=== PATIENT | male | born 1970 | race Hispanic/Latino ===

== ENCOUNTER 2020-03-25 10:08 | Emergency (ER) | payer OTHER ==
[2020-03-25] MEDS ORDERED: LACTATED RINGERS 1,000 ML IV ONE (10:44)
--- NOTE | 2020-03-25 10:47 | Emergency Department Report ---
ED Lower Extremity HPI - General Chief Complaint: Extremity Injury, Lower Stated Complaint: LEG INJURY Time Seen by Provider: 03/25/20 10:31 Source: patient, EMS ( EMS documentation not available at time of chart dictation ), RN notes reviewed Mode of arrival: Stretcher Limitations: Physical Limitation - History of Present Illness Initial Comments: The patient is a 50-year-old gentleman who is not known to myself previously, who denies significant chronic medical issues, presenting to the ER with traumatic right lower extremity injury. Patient states that he was bending down on his left knee, out on the street, and a truck which was supported lost its support, and landed on his knee, directing it inferiorly and possibly posteriorly (right knee.) Prior to this event, he was not having any pain or injury. After this, he states that he felt something "snap" in his right ankle/distal lower extremity, and has intense sharp throbbing pain, which increases with palpation, range of motion, and decreases with rest. He denies headache, neck pain, chest pain, abdominal pain, shortness of breath, weakness/numbness. He states that the truck landed on his knee, and directed the force distally through his foot/ankle. He was splinted by EMS prior to arrival. MD Complaint: knee injury, ankle injury, foot injury, other -: Sudden Injury: Ankle: Right Type of Injury: blunt Place: school, street/outdoors Severity: severe Improves With: rest Worsens With: movement, palpation Context: other Associated Symptoms: snap/pop sensation, swelling, unable to bear weight Treatments Prior to Arrival: bandage, splint - Related Data Previous Rx's Medication Instructions Recorded Last Taken Type Acetaminophen [Non-Aspirin Extra 500 mg PO Q6HR PRN #30 tablet 03/25/20 Unknown Rx Strength] Ibuprofen [Motrin] 600 mg PO Q8H PRN #30 tablet 03/25/20 Unknown Rx Morphine Sulfate [Morphine Sulfate 7.5 mg PO Q6HR PRN #10 tablet 03/25/20 Unknown Rx IR] Allergies Allergy/AdvReac Type Severity Reaction Status Date / Time No Known Allergies Allergy Unverified 03/25/20 10:24 ED Review of Systems ROS: Stated complaint: LEG INJURY Other details as noted in HPI Constitutional: denies: fever Eyes: denies: eye discharge ENT: denies: epistaxis Respiratory: denies: cough Cardiovascular: denies: chest pain Gastrointestinal: denies: abdominal pain Musculoskeletal: joint swelling, arthralgia, myalgia Skin: denies: lesions Neurological: denies: numbness, paresthesias ED Past Medical Hx - Past Medical History Previous Medical History?: No - Surgical History Past Surgical History?: No - Social History Smoking Status: Current Every Day Smoker Substance Use Type: Alcohol - Medications Home Medications: Home Medications Medication Instructions Recorded Confirmed Last Taken Type Acetaminophen [Non-Aspirin Extra 500 mg PO Q6HR PRN #30 tablet 03/25/20 Unknown Rx Strength] Ibuprofen [Motrin] 600 mg PO Q8H PRN #30 tablet 03/25/20 Unknown Rx Morphine Sulfate [Morphine Sulfate 7.5 mg PO Q6HR PRN #10 tablet 03/25/20 Unknown Rx IR] ED Physical Exam - General Limitations: Physical Limitation General appearance: alert, in no apparent distress - Head Head exam: Present: atraumatic, normocephalic - Eye Eye exam: Present: normal appearance, EOMI. Absent: nystagmus - ENT ENT exam: Present: normal exam, normal orophraynx, mucous membranes moist, normal external ear exam - Neck Neck exam: Present: normal inspection, full ROM. Absent: tenderness, meningismus - Respiratory Respiratory exam: Present: normal lung sounds bilaterally. Absent: respiratory distress - Cardiovascular Cardiovascular Exam: Present: regular rate, normal rhythm, normal heart sounds. Absent: bradycardia, tachycardia, irregular rhythm, systolic murmur, diastolic murmur, rubs, gallop - GI/Abdominal GI/Abdominal exam: Present: soft, normal bowel sounds. Absent: distended, tenderness, guarding, rebound, rigid, pulsatile mass - Rectal Rectal exam: Present: deferred - Extremities Exam Extremities exam: Present: tenderness (There is diffuse right ankle tenderness. There is no significant laxity in the joint. 2+ pulses noted in the bilateral upper/lower extremities in the bilateral femoral and dorsalis pedis distribution. The thighs are nontender, the knees are nontender, the proximal fibula/tibia are nontender.). Absent: normal inspection (There is a small right-sided ankle effusion) - Back Exam Back exam: Present: normal inspection, full ROM. Absent: tenderness, CVA tenderness (R), CVA tenderness (L), paraspinal tenderness, vertebral tenderness - Neurological Exam Neurological exam: Present: alert, other (No facial droop. Tongue midline. Extraocular movements intact bilaterally. Facial sensation intact to light touch in V1, V2, V3 distribution bilaterally. 5 and a 5 strength in 4 extremities. Sensation intact to light touch in 4 extremities.). Absent: motor sensory deficit - Psychiatric Psychiatric exam: Present: normal affect, normal mood - Skin Skin exam: Present: warm, dry, intact, normal color. Absent: rash ED Course Vital Signs 03/25/20 10:28 Temperature 98.1 F Pulse Rate 60 Respiratory 16 Rate Blood Pressure 135/75 [Right] O2 Sat by Pulse 98 Oximetry - Reevaluation(s) Reevaluation #1: 03/25/20 12:10 Differential diagnosis, including but not limited to: Fracture, dislocation, arterial injury, crush injury Assessment and plan: 50-year-old gentleman presenting with crush injury to right knee, where he was kneeling on his left knee, and a truck which was supported fell down on his knee, directing force inferiorly, and possibly posteriorly. Given mechanism of injury, we will obtain CT angiogram right lower extremity to exclude occult arterial injury, given mechanism, ankle-brachial index may not be sufficient to exclude occult arterial injury. We will treat his pain aggressively, he is given hydromorphone for pain, which improved his pain. X-rays/plain films of his right lower extremity are reviewed and appreciated. An Aircast will be ordered. If no arterial injury noted, he will need to remain nonweightbearing on the right lower extremity, maintain Aircast/splint, and follow-up with Worker's Compensation orthopedic/sports/physician. Discussed this plan of care with the patient, who verbalized understanding, and who is amenable to this plan of care. Reevaluation #2: 03/25/20 13:59 Reassessed multiple times. Patient feels improved. Pulses remain intact. Angiogram shows no arterial injury. Nonweightbearing, crutches, splint applied. Reiterated discharge instructions to patient who verbalized understanding ED Lower Extremity MDM - Lab Data Result diagrams: 03/25/20 10:57 03/25/20 10:57 Vital Signs 03/25/20 10:28 Temperature 98.1 F Pulse Rate 60 Respiratory 16 Rate Blood Pressure 135/75 [Right] O2 Sat by Pulse 98 Oximetry Labs 08/03/25/20 03/25/20 10:51 10:57 10:57 Hgb 16.6 H Hct 49.6 H Plt Count 319 PT 12.4 INR 0.91 Sodium 142 Potassium 4.0 Chloride 104.2 Carbon Dioxide 26 Anion Gap 16 BUN 14 Creatinine 0.9 Estimated GFR > 60 BUN/Creatinine Ratio 16 Glucose 85 Calcium 9.6 Total Creatine Kinase 93 - Radiology Data Radiology results: report reviewed, image reviewed Print Report Referring Physician: ARMANDO VIVAS Patient Name: LORENZO SPENCER Date of : 1970 Sex: Male Report Date: 2020-03-25 Report Status: Finalized Findings [address] [address] XRay Report Signed Patient: LORENZO SPENCER MR#: [id number] 450 : 1970 Acct:[id number] Age/Sex: 50 / M ADM Date: 03/25/20 Loc: ED Attending Dr: Ordering Physician: ARMANDO VIVAS MD Date of Service: 03/25/20 Procedure(s): XR tibia fibula 2V RT Accession Number(s): [id number] cc: ARMANDO VIVAS MD Fluoro Time In Minutes: RIGHT TIBIA-FIBULA 4 VIEW(S) INDICATION / CLINICAL INFORMATION: right leg pain crush injury COMPARISON: None available. FINDINGS: BONES / JOINT(S): There is a comminuted, minimally displaced fracture of the lateral talar process. No additional fractures are seen. There is no dislocation. Overall knee and ankle alignment is normal. No significant arthritis. SOFT TISSUES: No significant abnormality. ADDITIONAL FINDINGS: None. Signer Name: Krishna Abreu MD Signed: 03/25/2020 11:51 AM Workstation Name: [id number] Transcribed By: SS Dictated By: KRISHNA ABREU Electronically Authenticated By: KRISHNA ABREU Signed Date/Time: 03/25/20 1151 DD/ 1150 TD/TT: Print Report Referring Physician: ARMANDO VIVAS Patient Name: LORENZO SPENCER Date of : 1970 Sex: Male Report Date: 2020-03-25 Report Status: Finalized Findings [facility] [address] [address] XRay Report Signed Patient: LORENZO SPENCER MR#: [id number] 450 : 1970 Acct:[id number] Age/Sex: 50 / M ADM Date: 03/25/20 Loc: ED Attending Dr: Ordering Physician: ARMANDO VIVAS MD Date of Service: 03/25/20 Procedure(s): XR femur 2+V RT Accession Number(s): [id number] cc: ARMANDO VIVAS MD Fluoro Time In Minutes: RIGHT FEMUR 4 VIEW(S) INDICATION / CLINICAL INFORMATION: right leg pain crush injury COMPARISON: None available. FINDINGS: BONES / JOINT(S): No acute fracture or subluxation. No significant arthritis. SOFT TISSUES: No significant abnormality. ADDITIONAL FINDINGS: None. Signer Name: Krishna Abreu MD Signed: 03/25/2020 11:52 AM Workstation Name: [id number] Transcribed By: SS Dictated By: KRISHNA ABREU Electronically Authenticated By: KRISHNA ABREU Signed Date/Time: 03/25/20 1152 DD/ 1151 Print Report Referring Physician: ARMANDO VIVAS Patient Name: LORENZO SPENCER Date of : 1970 Sex: Male Report Date: 2020-03-25 Report Status: Finalized Findings [address] [address] XRay Report Signed Patient: LORENZO SPENCER MR#: [id number] 450 : 1970 Acct:[id number] Age/Sex: 50 / M ADM Date: 03/25/20 Loc: ED Attending Dr: Ordering Physician: ARMANDO VIVAS MD Date of Service: 03/25/20 Procedure(s): XR knee 1-2V RT Accession Number(s): [id number] cc: ARMANDO VIVAS MD Fluoro Time In Minutes: RIGHT KNEE 2 VIEWS INDICATION: rigth leg pain crush injury. COMPARISON: None. IMPRESSION: No acute osseous or soft tissue abnormality. No significant DJD. Signer Name: Christopher Steele Jr, MD Signed: 03/25/2020 11:48 AM Workstation Name: [id number] Transcribed By: TTR Dictated By: CHRISTOPHER STEELE JR, MD Electronically Authenticated By: CHRISTOPHER STEELE JR, MD Signed Date/Time: 03/25/20 1148 DD/ 1147 TD/TT: Print Report Referring Physician: ARMANDO VIVAS Patient Name: LORENZO SPENCER Date of : 1970 Sex: Male Report Date: 2020-03-25 Report Status: Finalized Findings [address] [address] XRay Report Signed Patient: LORENZO SPENCER MR#: [id number] 450 : 1970 Acct:[id number] Age/Sex: 50 / M ADM Date: 03/25/20 Loc: ED Attending Dr: Ordering Physician: ARMANDO VIVAS MD Date of Service: 03/25/20 Procedure(s): XR foot 2V RT Accession Number(s): [id number] cc: ARMANDO VIVAS MD Fluoro Time In Minutes: RIGHT FOOT 2 VIEW(S) INDICATION / CLINICAL INFORMATION: right leg pain crush injury COMPARISON: None available. FINDINGS: BONES / JOINT(S): There is a comminuted, minimally displaced fracture of the lateral talar process. No additional fractures are seen. There is no dislocation. Inferior calcaneal enthesopathy is noted. SOFT TISSUES: No significant abnormality. ADDITIONAL FINDINGS: None. IMPRESSION: Comminuted, minimally displaced fracture of the lateral talar process. Signer Name: Krishna Abreu MD Signed: 03/25/2020 11:50 AM Workstation Name: [id number] Transcribed By: SS Dictated By: KRISHNA ABREU Electronically Authenticated By: KRISHNA ABREU Signed Date/Time: 03/25/20 1150 DD/ 1149 TD/TT: Print Report Referring Physician: ARMANDO VIVAS Patient Name: LORENZO SPENCER Date of : 1970 Sex: Male Report Date: 2020-03-25 Report Status: Finalized Findings [address] [address] XRay Report Signed Patient: LORENZO SPENCER MR#: [id number] 450 : 1970 Acct:[id number] Age/Sex: 50 / M ADM Date: 03/25/20 Loc: ED Attending Dr: Ordering Physician: ARMANDO VIVAS MD Date of Service: 03/25/20 Procedure(s): XR ankle 3+V RT Accession Number(s): [id number] cc: ARMANDO VIVAS MD Fluoro Time In Minutes: RIGHT ANKLE 3 VIEW(S) INDICATION / CLINICAL INFORMATION: right leg pain crush injury COMPARISON: None available. FINDINGS: BONES / JOINT(S): There is a comminuted, minimally displaced fracture of the lateral talar process. No additional fractures are seen. There is no dislocation. 6 inferior calcaneal enthesopathy is seen at the plantar fascial attachment. SOFT TISSUES: No significant abnormality. ADDITIONAL FINDINGS: None. IMPRESSION: Comminuted, minimally displaced fracture of the lateral talar process. Signer Name: Krishna Abreu MD Signed: 03/25/2020 11:49 AM Workstation Name: [id number] Transcribed By: SS Dictated By: KRISHNA ABREU Electronically Authenticated By: KRISHNA ABREU Signed Date/Time: 03/25/20 1149 DD/ 1147 TD/TT: Print Report Referring Physician: ARMANDO VIVAS Patient Name: LORENZO SPENCER Date of : 1970 Sex: Male Report Date: 2020-03-25 Report Status: Finalized Findings [facility] [address] [place] [address] Cat Scan Report Signed Patient: LORENZO SPENCER MR#: [id number] 450 : 1970 Acct:[id number] Age/Sex: 50 / M ADM Date: 03/25/20 Loc: ED Attending Dr: Ordering Physician: ARMANDO VIVAS MD Date of Service: 03/25/20 Procedure(s): CT angio lower extremity RT Accession Number(s): [id number] cc: ARMANDO VIVAS MD CTA RIGHT LOWER EXTREMITY INDICATION / CLINICAL INFORMATION: right leg pain crush injury. TECHNIQUE: Axial CT images were obtained through the right lower extremity after injection of 100 mL Omnipaque 350 IV contrast. 3 plane MIP / 3D reconstructions were produced. All CT scans at this location are performed using CT dose reduction for ALARA by means of automated exposure control. Any percent stenosis measurements are based on criteria similar to NASCET. COMPARISON: None available. FINDINGS: VASCULAR FINDINGS: - Common Femoral Artery: No significant abnormality. - Superficial Femoral Artery: No significant abnormality. - Profunda Femoral Artery: No significant abnormality. - Popliteal Artery: No significant abnormality. - Anterior Tibial Artery: No significant abnormality. - Tibioperoneal Trunk: No significant abnormality. - Posterior Tibial Artery: No significant abnormality. - Peroneal Artery: No significant abnormality. - Ankle runoff: Three vessel. NONTARGET STRUCTURES: PELVIS:No significant abnormality. LOWER EXTREMITIES:No significant abnormality. SKELETAL: Comminuted fractures of the lateral process of the talus in the right foot appears similar to recent x- rays. ADDITIONAL FINDINGS: None. IMPRESSION: 1. No acute arterial injury in the right lower extremity. Signer Name: Cale Guzman MD Signed: 03/25/2020 1:11 PM Workstation Name: [id number] Transcribed By: DANNY Dictated By: Cale Guzman MD Electronically Authenticated By: Cale Guzman MD Signed Date/Time: 03/25/20 1311 DD/ 1308 Critical care attestation.: If time is entered above; I have spent that time in minutes in the direct care of this critically ill patient, excluding procedure time. ED Disposition Clinical Impression: Crush injury knee/lower leg Qualifiers: Encounter type: initial encounter Laterality: right Qualified Code(s): S87.01XA - Crushing injury of right knee, initial encounter Fracture, talus closed Qualifiers: Encounter type: initial encounter Talus location: unspecified portion of talus Fracture alignment: displaced Laterality: right Qualified Code(s): S92.101A - Unspecified fracture of right talus, initial encounter for closed fracture Disposition: DC-01 TO HOME OR SELFCARE Is pt being admited?: No Does the pt Need Aspirin: No Condition: Stable Additional Instructions: Keep the right lower extremity splint in place. Remain nonweightbearing on the right lower extremities. Take the pain medications as needed and directed. Follow-up with a Worker's Compensation physician or orthopedic physician for right lower extremity injury within the next 3 to 5 days. Please return to the emergency room right away with new pain, worsening pain, migration of pain, extremity weakness, numbness, projectile vomiting, change in mental status, confusion, inability to tolerate liquid feeds, new, worsened or different symptoms not present on the initial emergency room evaluation. If taking the morphine sulfate for pain, do not drive, consume alcohol, or make important decisions. Please do not take metformin medication for the next 2 days, if patient takes this medication Prescriptions: Morphine Sulfate [Morphine Sulfate IR] 7.5 mg PO Q6HR PRN #10 tablet PRN Reason: Pain , Severe (7-10) Ibuprofen [Motrin] 600 mg PO Q8H PRN #30 tablet PRN Reason: Pain Acetaminophen [Non-Aspirin Extra Strength] 500 mg PO Q6HR PRN #30 tablet PRN Reason: Pain , Severe (7-10) Referrals: NINFA APONTE MD [Staff Physician] - 3-5 Days [facility] [Provider Group] - 3-5 Days Forms: Work/School Release Form
[2020-03-25 11:15] LABS: Hematocrit 49.6 % (35.5-45.6); Hemoglobin 16.6 gm/dl (11.8-15.2)
[2020-03-25 11:25] LABS: INR 0.91 (0.87-1.13)
[2020-03-25] MEDS ORDERED: HYDROmorphone 1 MG/1 ML INJ IV ONE ×3 (11:41)
[2020-03-25 11:43] LABS: BUN/Creatinine Ratio 16; Blood Urea Nitrogen 14 mg/dL (9-20); Calcium 9.6 mg/dL (8.4-10.2); Hemolysis Index 9
--- NOTE | 2020-03-25 11:52 | XRay Report ---
RIGHT KNEE 2 VIEWS INDICATION: rigth leg pain crush injury. COMPARISON: None. IMPRESSION: No acute osseous or soft tissue abnormality. No significant DJD. Signer Name: Christopher Steele Jr, MD Signed: 03/25/2020 11:48 AM Workstation Name: [id number]
--- NOTE | 2020-03-25 11:54 | XRay Report ---
RIGHT ANKLE 3 VIEW(S) INDICATION / CLINICAL INFORMATION: right leg pain crush injury COMPARISON: None available. FINDINGS: BONES / JOINT(S): There is a comminuted, minimally displaced fracture of the lateral talar process. N o additional fractures are seen. There is no dislocation. 6 inferior calcaneal enthesopathy is seen a t the plantar fascial attachment. SOFT TISSUES: No significant abnormality. ADDITIONAL FINDINGS: None. IMPRESSION: Comminuted, minimally displaced fracture of the lateral talar process. Signer Name: Saeid Abreu MD Signed: 03/25/2020 11:49 AM Workstation Name: [id number]
--- NOTE | 2020-03-25 11:55 | XRay Report ---
RIGHT FOOT 2 VIEW(S) INDICATION / CLINICAL INFORMATION: right leg pain crush injury COMPARISON: None available. FINDINGS: BONES / JOINT(S): There is a comminuted, minimally displaced fracture of the lateral talar process. N o additional fractures are seen. There is no dislocation. Inferior calcaneal enthesopathy is noted. SOFT TISSUES: No significant abnormality. ADDITIONAL FINDINGS: None. IMPRESSION: Comminuted, minimally displaced fracture of the lateral talar process. Signer Name: Saeid Abreu MD Signed: 03/25/2020 11:50 AM Workstation Name: [id number]
--- NOTE | 2020-03-25 11:56 | XRay Report ---
RIGHT TIBIA-FIBULA 4 VIEW(S) INDICATION / CLINICAL INFORMATION: right leg pain crush injury COMPARISON: None available. FINDINGS: BONES / JOINT(S): There is a comminuted, minimally displaced fracture of the lateral talar process. N o additional fractures are seen. There is no dislocation. Overall knee and ankle alignment is normal. No significant arthritis. SOFT TISSUES: No significant abnormality. ADDITIONAL FINDINGS: None. Signer Name: Saeid Abreu MD Signed: 03/25/2020 11:51 AM Workstation Name: [id number]
--- NOTE | 2020-03-25 11:56 | XRay Report ---
RIGHT FEMUR 4 VIEW(S) INDICATION / CLINICAL INFORMATION: right leg pain crush injury COMPARISON: None available. FINDINGS: BONES / JOINT(S): No acute fracture or subluxation. No significant arthritis. SOFT TISSUES: No significant abnormality. ADDITIONAL FINDINGS: None. Signer Name: Saeid Abreu MD Signed: 03/25/2020 11:52 AM Workstation Name: [id number]
--- NOTE | 2020-03-25 13:15 | Cat Scan Report ---
CTA RIGHT LOWER EXTREMITY INDICATION / CLINICAL INFORMATION: right leg pain crush injury. TECHNIQUE: Axial CT images were obtained through the right lower extremity after injection of 100 mL Omnipaque 3 50 IV contrast. 3 plane MIP / 3D reconstructions were produced. All CT scans at this location are per formed using CT dose reduction for ALARA by means of automated exposure control. Any percent stenosi s measurements are based on criteria similar to NASCET. COMPARISON: None available. FINDINGS: VASCULAR FINDINGS: - Common Femoral Artery: No significant abnormality. - Superficial Femoral Artery: No significant abnormality. - Profunda Femoral Artery: No significant abnormality. - Popliteal Artery: No significant abnormality. - Anterior Tibial Artery: No significant abnormality. - Tibioperoneal Trunk: No significant abnormality. - Posterior Tibial Artery: No significant abnormality. - Peroneal Artery: No significant abnormality. - Ankle runoff: Three vessel. NONTARGET STRUCTURES: PELVIS:No significant abnormality. LOWER EXTREMITIES:No significant abnormality. SKELETAL: Comminuted fractures of the lateral process of the talus in the right foot appears similar to recent x-rays. ADDITIONAL FINDINGS: None. IMPRESSION: 1. No acute arterial injury in the right lower extremity. Signer Name: Cale Guzman MD Signed: 03/25/2020 1:11 PM Workstation Name: [id number]
[2020-03-25 14:47] VITALS: BP 110/66
== END 2020-03-25 14:51 | disposition home or self-care (01) ==
LOC: ED 10:08
DX: S92.101A Unspecified fracture of right talus, initial encounter for closed fracture (principal); S87.01XA Crushing injury of right knee, initial encounter; F17.200 Nicotine dependence, unspecified, uncomplicated; Z79.899 Other long term (current) drug therapy; X58.XXXA Exposure to other specified factors, initial encounter; Y93.89 Activity, other specified; Y92.89 Other specified places as the place of occurrence of the external cause; Y99.8 Other external cause status
CPT/HCPCS: 29515; 36415; 73552; 73560; 73590; 73610; 73620; 73706; 80048; 82550; 85014; 85018; 85049; 85610; 96374; 99285; J1170; Q9967

== ENCOUNTER 2022-02-01 12:53 | Emergency (ER) | payer OTHER ==
[2022-02-01] MEDS ORDERED: KETOROLAC 30 MG/1 ML INJ IV ONE (13:32)
--- NOTE | 2022-02-01 14:26 | Cat Scan Report ---
CT HEAD WITHOUT CONTRAST INDICATION / CLINICAL INFORMATION: head injury, n/v, dizziness.. TECHNIQUE: All CT scans at this location are performed using CT dose reduction for ALARA by means of automated exposure control. COMPARISON: None available. FINDINGS: BRAIN PARENCHYMA: No acute intracranial hemorrhage. No evidence of recent infarct. No mass effect or midline shift. Small area of encephalomalacia in the right cerebellar hemisphere, may reflect prior i nfarct or trauma. VENTRICULAR SYSTEM/EXTRA-AXIAL SPACES: Ventricles are normal for age. No extra-axial fluid collection . ORBITS: Normal as visualized. SKELETAL SYSTEM/SOFT TISSUES: Deviation of the anterior nasal septum to the right appears remote. No acute fracture. Extra calvarial soft tissues are within normal limits. PARANASAL SINUSES/MASTOID AIR CELLS: No significant abnormality. ADDITIONAL FINDINGS: None. IMPRESSION: 1. No acute intracranial abnormality. Signer Name: Johnathon Miranda MD Signed: 02/01/2022 2:22 PM Workstation Name: [id number]
--- NOTE | 2022-02-01 14:56 | Emergency Department Report ---
ED Head Trauma HPI - General Chief complaint: Head Injury Stated complaint: HIT IN HEAD Time Seen by Provider: 02/01/22 13:31 Source: patient, EMS Mode of arrival: Stretcher Limitations: No Limitations - History of Present Illness Initial comments: 52-year-old white male with no past medical history presents to the emergency department for evaluation of head injury. 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 He denies loss of consciousness but states that he had dizziness, nausea, and vision changes. MD Complaint: head injury -: Sudden, hour(s) Arrival Conditions: Negative: C-spine immobilization present, spinal board immobilization present Mechanism of Injury: work related injury Location: occipital Loss of Consciousness: no Previous Trauma to this Area: No Place: work Severity scale (0 -10): 6 Quality: aching Other Injuries: none Associated Symptoms: vision changes, nausea. denies: confusion, amnesia, repetitive questioning, vomiting, vertigo, syncope, numbness, weakness, tingling, neck pain - Related Data Previous Rx's Medication Instructions Recorded Last Taken Type Acetaminophen [Non-Aspirin Extra 500 mg PO Q6HR PRN #30 tablet 03/25/20 Unknown Rx Strength] Ibuprofen [Motrin] 600 mg PO Q8H PRN #30 tablet 03/25/20 Unknown Rx Morphine Sulfate [Morphine Sulfate 7.5 mg PO Q6HR PRN #10 tablet 03/25/20 Un known Rx IR] Allergies/Adverse reactions: Allergies Allergy/AdvReac Type Severity Reaction Status Date / Time No Known Allergies Allergy Verified 02/01/22 13:00 ED Review of Systems ROS: Stated complaint: HIT IN HEAD Other details as noted in HPI Comment: All other systems reviewed and negative Constitutional: denies: chills, fever Eyes: vision change. denies: eye pain ENT: denies: congestion Respiratory: denies: shortness of breath Cardiovascular: denies: chest pain, palpitations, dyspnea on exertion Gastrointestinal: nausea. denies: abdominal pain, vomiting Genitourinary: denies: urgency, dysuria Musculoskeletal: denies: back pain Neurological: headache. denies: weakness, numbness, abnormal gait, vertigo ED Past Medical Hx - Social History Smoking Status: Current Every Day Smoker Substance Use Type: Alcohol - Medications Home Medications: Home Medications Medication Instructions Recorded Confirmed Last Taken Type Acetaminophen [Non-Aspirin Extra 500 mg PO Q6HR PRN #30 tablet 03/25/20 Unknown Rx Strength] Ibuprofen [Motrin] 600 mg PO Q8H PRN #30 tablet 03/25/20 Unknown Rx Morphine Sulfate [Morphine Sulfate 7.5 mg PO Q6HR PRN #10 tablet 03/25/20 Unknown Rx IR] ED Physical Exam - General Limitations: No Limitations General appearance: alert, in no apparent distress - Head Head exam: Present: normocephalic. Absent: atraumatic - Expanded Head Exam Expanded Head exam: Present: contusion 1 - Contusion with swelling and tenderness. - Eye Eye exam: Present: normal appearance. Absent: conjunctival injection, periorbital swelling, periorbital tenderness - ENT ENT exam: Present: normal exam - Neck Neck exam: Present: normal inspection, full ROM. Absent: tenderness - Respiratory Respiratory exam: Present: normal lung sounds bilaterally. Absent: respiratory distress, wheezes, rales, rhonchi, stridor, chest wall tenderness - Cardiovascular Cardiovascular Exam: Present: regular rate, normal heart sounds - GI/Abdominal GI/Abdominal exam: Present: soft, normal bowel sounds. Absent: distended, tenderness, guarding, rebound, rigid - Extremities Exam Extremities exam: Present: normal inspection, normal capillary refill. Absent: pedal edema, joint swelling, calf tenderness - Back Exam Back exam: Present: normal inspection. Absent: CVA tenderness (R), CVA t enderness (L), vertebral tenderness - Neurological Exam Neurological exam: Present: alert, oriented X3 - Psychiatric Psychiatric exam: Present: normal affect, normal mood - Skin Skin exam: Present: warm, dry, intact, normal color ED Course Vital Signs 02/01/22 12:58 Temperature 98.2 F Pulse Rate 63 Respiratory 16 Rate Blood Pressure 141/91 [Left] O2 Sat by Pulse 98 Oximetry - Radiology Data Radiology results: report reviewed, image reviewed CT head without contrast: FINDINGS: BRAIN PARENCHYMA: No acute intracranial hemorrhage. No evidence of recent infarct. No mass effect or midline shift. Small area of encephalomalacia in the right cerebellar hemisphere, may reflect prior infarct or trauma. VENTRICULAR SYSTEM/EXTRA-AXIAL SPACES: Ventricles are normal for age. No extra- axial fluid collection. ORBITS: Normal as visualized. SKELETAL SYSTEM/SOFT TISSUES: Deviation of the anterior nasal septum to the right appears remote. No acute fracture. Extra calvarial soft tissues are within normal limits. PARANASAL SINUSES/MASTOID AIR CELLS: No significant abnormality. ADDITIONAL FINDINGS: None. IMPRESSION: 1. No acute intracranial abnormality. - Medical Decision Making 52-year-old white male with no past medical history presents to the emergency department for evaluation of head injury. 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 He denies loss of consciousness but states that he had dizziness, nausea, and v ision changes. CT scan without any acute abnormalities noted. Physical exam unremarkable. Patient states headache mostly gone. Patient will be discharged home to use Tylenol and ibuprofen as needed for pain and advised to follow-up with his primary care provider for worsening symptoms. He was advised to return to the emergency department for any concerning symptoms. He verbalizes understanding of and agreement with plan of care. - NEXUS Criteria Focal neurological deficit present: No Midline spinal tenderness present: No Altered level of consciousness: No Intoxication present: No Distracting injury present: No NEXUS results: C-Spine can be cleared clinically by these results. Imaging is not required. Critical care attestation.: If time is entered above; I have spent that time in minutes in the direct care of this critically ill patient, excluding procedure time. ED Disposition Clinical Impression: Head injury Qualifiers: Encounter type: initial encounter Qualified Code(s): S09.90XA - Unspecified injury of head, initial encounter Scalp contusion Qualifiers: Encounter type: initial encounter Qualified Code(s): S00.03XA - Contusion of scalp, initial encounter Disposition: HOME / SELF CARE / HOMELESS Is pt being admited?: No Does the pt Need Aspirin: No Condition: Stable Instructions: Head Injury, Adult, Facial or Scalp Contusion, Upfl-ut-Yrim Additional Instructions: Use Tylenol or ibuprofen at home as needed for pain. Follow-up with primary care provider for worsening symptoms. Return to the emergency department for any concerning symptoms. Referrals: SULEIMAN COLLINS MD [Staff Physician] - 3-5 Days Forms: Work/School Release Form(ED) Time of Disposition: 14:56
[2022-02-01 16:08] VITALS: BP 125/85
== END 2022-02-01 15:59 | disposition home or self-care (01) ==
LOC: ED 12:53
DX: S09.90XA Unspecified injury of head, initial encounter (principal); S00.03XA Contusion of scalp, initial encounter; F17.290 Nicotine dependence, other tobacco product, uncomplicated; V09.9XXA Pedestrian injured in unspecified transport accident, initial encounter; Y93.89 Activity, other specified; Y92.89 Other specified places as the place of occurrence of the external cause; Y99.8 Other external cause status
CPT/HCPCS: 70450; 96374; 99284; J1885